=== PATIENT | male | born 1960 | race Caucasian/White ===

== ENCOUNTER → 2018-04-11 | Outpatient (CLI) | payer OTHER ==
[~2018-04-11] MED LIST: ALLO300T PO; ESCITALOPRAM OX10 MG PO
--- NOTE | 2018-04-11 12:16 | CARD ---
MR#: [id number] Date of Study: 04/11/2018 Ordering Physician: LETITIA CHIN, Referring Physician: LETITIA CHIN, Tech: Jannet Carrizales BLAYNE APPROVED REPORT EXAM: Two-dimensional and M-mode echocardiogram with Doppler and color Doppler. Other Information Quality : Good INDICATION Chest Pain 2D DIMENSIONS RVDd3.5 (2.9-3.5cm)Left Atrium(2D)3.6 (1.6-4.0cm) IVSd1.0 (0.7-1.1cm)Aortic Root(2D)3.1 (2.0-3.7cm) LVDd4.2 (3.9-5.9cm)LVOT Diameter2.1 (1.8-2.4cm) PWd0.9 (0.7-1.1cm)LVDs2.7 (2.5-4.0cm) FS (%) 35.9 %SV50.5 ml Aortic Valve AoV Peak Nate.136.9cm/sAoV VTI23.2cm AO Peak GR.7.5mmHgLVOT Peak Nate.92.9cm/s LVOT VTI 18.74cmAO Mean GR.4mmHg SUN (VMAX)2.64xl8IVA (VTI)2.69cm2 Mitral Valve MV E Quzwqkak27.3cm/sMV DECEL PMME913ub MV A Odxcebkg87.6cm/sMV VBE27gt E/A Ratio0.9MVA (PHT)2.83cm2 TDI E/Lateral E'9.6E/Medial E'9.3 Tricuspid Valve TR P. Xzdgqrkl376ut/sRAP KQYQWOZC3wzQg TR Peak Gr.44bgKeIAYE25epEw Pulmonary Vein S1 Aaloaimw96.2cm/sD2 Otslzxiu14.3cm/s LEFT VENTRICLE The left ventricle is normal size. There is borderline concentric left ventricular hypertrophy. The l eft ventricular systolic function is normal and the ejection fraction is within normal range. The Eje ction Fraction is 60-65%. There is normal LV segmental wall motion. Transmitral Doppler flow pattern is Grade I-abnormal relaxation pattern. RIGHT VENTRICLE The right ventricle is normal size. The right ventricular systolic function is normal. ATRIA The left atrium size is normal. The right atrium size is normal. The interatrial septum is intact wit h no evidence for an atrial septal defect or patent foramen ovale as noted on 2-D or Doppler imaging. AORTIC VALVE The aortic valve is calcified but opens well. Doppler and Color Flow revealed no significant aortic r egurgitation. There is no significant aortic valvular stenosis. MITRAL VALVE The mitral valve is calcified but opens well. There is no evidence of mitral valve prolapse. There is no mitral valve stenosis. Doppler and Color-flow revealed trace to mild mitral regurgitation. TRICUSPID VALVE The tricuspid valve is normal in structure and function. Doppler and Color Flow revealed trace tricus pid regurgitation. The PA pressure was estimated at 32 mmHg. There is no tricuspid valve stenosis. PULMONIC VALVE The pulmonic valve is not well visualized. Doppler and Color Flow revealed trace pulmonic valvular re gurgitation. There is no pulmonic valvular stenosis. GREAT VESSELS The aortic root is normal in size. The ascending aorta is normal in size. The IVC is normal in size a nd collapses >50% with inspiration. PERICARDIAL EFFUSION There is no evidence of significant pericardial effusion. Critical Notification Critical Value: No <Conclusion> The left ventricle is normal size. The left ventricular systolic function is normal and the ejection fraction is within normal range. The Ejection Fraction is 60-65%. There is borderline concentric left ventricular hypertrophy. There is no significant aortic valvular stenosis. Doppler and Color Flow revealed no significant aortic regurgitation. Doppler and Color-flow revealed trace to mild mitral regurgitation. Doppler and Color Flow revealed trace tricuspid regurgitation. The PA pressure was estimated at 32 mmHg. Signed by : Beau Robins MD Electronically Approved : 04/11/2018 12:14:46
--- NOTE | 2018-04-11 13:32 | RAD ---
MR#: [id number] Date of Study: 04/11/2018 Ordering Physician: LETITIA MA, Referring Physician: RINA DOZIER Tech: Kimmy Weaver Trini, RT (R) (N) APPROVED REPORT Test Type: Exercise Stress Nurse/Tech: Kirsten Silva R.N. Test Indications: chest pain Cardiac History: Family history Medications: See Electronic Medical Record Medical History: See Electronic Medical Record Resting ECG: s. Christophe Resting Heart Rate: 56 bpm Resting Blood Pressure: 144/64mmHg Pretest Chest Pain: No chest pain Nurse/Tech Notes S1S2, lungs sound clear Consent: The procedure was explained to the patient in lay terms. Informed consent was witnessed. Bebeto eout was entered into [employer] History and Stress Test performed by Kirsten Silva R.N. Stress Symptoms Dyspnea, too much artifact to get a good reading of EKG while pt was walking POST EXERCISE Reason for Termination: Reached target heart rate Target HR: 138 Max HR: 142 bpm Exercise duration: 9 min. 39 sec min:sec, 4 Stage Max Blood Pressure: 170/92mmHg Blood Pressure response to exercise: Normal blood pressure response during stress. Chest Pain: No. Arrhythmia: No. ST Change: Yes. INTERPRETATION Stress EKG Conclusion: Non-diagnostic EKG due to motion artifact. Imaging Protocol IMAGE PROTOCOL: Rest Tc-99m/stress Tc-99m 1 day Rest: Stress: Viability: Radiopharm.Tc99m XehpwcbolPn46u Sestamibi Dose12.6mCi 32.4mCi Duration 17min. 13min. Img Date 04/11/2018 04/11/2018 Inj-Img Tyta57ncw. 90min. Rest Admin Site:IV - Right AntecubitalAdministrator:ORACIO Weaver Stress Admin Site: IV - Right AntecubitalAdministrator: ORACIO Weaver STRESS DATA End Diast. Vol.62.0mlLVEDV index BSA32.0ml End Syst. Vol.11.0mlLVESV index BSA5.0ml Myocardial Qxki049.0gEject. Eahcpyae52.0% Stress Scores Regional WT0.00Summed WT5.00 Regional WM0.00Summed WM1.00 LV Perfusion There is a moderate sized, moderate to severe in intensity reversible perfusion defect involving the basal to distal inferior wall suggestive of stenosis in the RCA distribution. There is also a small sized, mild to moderate intensity mid anterior wall defect that is reversible s uggestive of LAD territory stenosis. No infarction is noted. Wall Motion Normal LV function. LV Perf. Quant 17 Seg. SSS16.00 17 Seg. SRS7.00 17 Seg. SDS9.00 Stress Defect Extent (% LAD)13.80Rest Defect Extent (% LAD)0.60Rev. Defect Extent (% LAD)8.80 Stress Defect Extent (% LCX) 76.30Rest Defect Extent (% LCX)61.30Rev. Defect Extent (% LCX)2.50 Stress Defect Extent (% RCA)18.90Rest Defect Extent (% RCA)0.00Rev. Defect Extent (% RCA)18.90 Stress Defect Extent (% YUNG)26.50Rest Defect Extent (% YUNG)14.30Rev. Defect Extent (% YUNG)7.60 Other Information Quality:Fair Risk Assessment: Low-Moderate Risk Conclusion 1. Non-diagnostic EKG due to motion artifact. 2. Perfusion defect in the anterior and inferior leahy as noted above. Cannot rule out motion artifac t 3. Normal LV systolic function. EF 65% 4. Low to moderate risk study. Signed by : Letitia Ma, Electronically Approved : 04/11/2018 13:32:38
== END | disposition home or self-care (01) ==
LOC: NM 09:01
PROVIDERS: ATTEND Internal Medicine Cardiovascular Disease
DX: R07.9 Chest pain, unspecified (principal); Z79.01 Long term (current) use of anticoagulants
CPT/HCPCS: 78452; 93017; 93306; 96374; 96376; A9500

== ENCOUNTER 2018-04-25 09:52 | Outpatient (CLI) | payer OTHER ==
[~2018-04-25] VITALS: Ht 175.3 cm; Wt 81.6 kg
[2018-04-25] VITALS (9 sets, daily range): BP systolic 108–132; BP diastolic 70–99
[2018-04-25 10:16] LABS: HEMOGLOBIN 17.5 g/dL (13.0-17.5); RED BLOOD COUNT 5.64 x10^6/uL (4.30-5.70); RED CELL DISTRIBUTION WIDTH 13.7 % (11.5-14.5); WHITE BLOOD COUNT 8.6 x10^3/uL (4.0-11.0)
[2018-04-25 10:22] LABS: CALCIUM 9.6 mg/dL (8.5-10.1); CREATININE 0.9 mg/dL (0.7-1.3); POTASSIUM 3.9 mmol/L (3.5-5.1)
[2018-04-25 10:27] LABS: PROTHROMBIN TIME PATIENT 12.7 SEC (11.7-14.0)
[2018-04-25] MEDS ORDERED: ESCITALOPRAM OX10 MG PO (10:38)
[2018-04-25] MEDS ORDERED: ALLO300T PO (10:38)
[2018-04-25] MEDS ORDERED: IOHEXOL 300 MG/ML 100ML VIAL. ONE (11:30)
[2018-04-25] MEDS ORDERED: LIDOCAINE 1% PF 2 ML VIAL. ONE (11:30)
[2018-04-25] MEDS ORDERED: HEPARIN for IV BOLUS 10,000 UNIT/10 ML VIAL. ONE (11:39)
[2018-04-25] MEDS ORDERED: fentaNYL PF VIAL 100 MCG/2 ML VIAL ONE (11:39)
[2018-04-25] MEDS ORDERED: NITROGLYCERIN 200 MCG/2 ML SYRINGE FOR CATH/VASC LAB. ONE ×2 (11:39→12:11)
[2018-04-25] MEDS ORDERED: VERAPAMIL 5 MG/2 ML VIAL. ONE (11:39)
[2018-04-25] MEDS ORDERED: MIDAZOLAM HCL/PF 2 MG/2 ML VIAL. ONE (11:39)
[2018-04-25] MEDS ORDERED: HEPARIN for IV BOLUS 10,000 UNIT/10 ML VIAL. IART ONE (12:30)
[2018-04-25] MEDS ORDERED: VERAPAMIL 5 MG/2 ML VIAL. IART ONE (12:30)
[2018-04-25] MEDS ORDERED: LIDOCAINE 1% PF 30 ML VIAL. INJ ONE (12:30)
[2018-04-25] MEDS ORDERED: NITROGLYCERIN 200 MCG/2 ML SYRINGE FOR CATH/VASC LAB. IART ONE (12:30)
[2018-04-25] MEDS ORDERED: IV NORMAL SALINE 1000ML BAG 1,000 ML IV ONE (12:30)
[2018-04-25] MEDS ORDERED: MIDAZOLAM HCL/PF 2 MG/2 ML VIAL. IV ONE (12:45)
[2018-04-25] MEDS ORDERED: fentaNYL PF VIAL 100 MCG/2 ML VIAL IV ONE (12:45)
[2018-04-25] MEDS ORDERED: LIDOCAINE 1% PF 2 ML VIAL. INJ ONE (12:45)
[2018-04-25 13:25] LABS: CHOLESTEROL/HDL RATIO 3.7
--- NOTE | 2018-04-25 14:15 | CARD ---
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 INDICATION The indication(s) include : positive stress test. PROCEDURE NARRATIVE INFORMED CONSENT: After explaining the risks and benefits of the procedure and alternatives, informed consent was obtained. The patient was brought electively to the cardiac catheterization lab. A timeout was performed confi rming the patient's name, date of , procedure, and site of procedure. All necessary personnel w ere wearing the appropriate protective equipment and radiation monitor devices. (See nursing notes for medications administered). ACCESS: The right wrist was sterilely prepped and draped in the usual fashion. The right wrist was infiltrat ed with 1 mL of 2% lidocaine for subcutaneous anesthesia. A 6 Japanese Terumo glide sheath was inserte d into the right radial artery without difficulty. CORONARY ANGIOGRAPHY: Right and left coronary angiography was performed using a 6Fr TIG 4.0 catheter. Left ventricular en d diastolic pressure was obtained with a pigtail catheter and pullback was performed after left ventr iculography. All catheter exchanges and advancements were performed over a guidewire. FINDINGS: HEMODYNAMICS: LVEDP 8 mm Hg No gradient on LV to aortic pullback. AO: 128/78 LEFT VENTRICULOGRAM: EF 70% Anterobasal: Normal. Anterolateral: Normal Apical: Normal Diaphragmatic: Normal Posterobasal: Normal CORONARY ANGIOGRAPHY: LM is a large caliber vessel with normal angiographic appearance. LAD is a large caliber vessel with proximal 30% stenosis and a mid 50% stenosis. The LAD wraps around the apex. D1/D2 are small caliber vessels with mild luminal irregularities. LCx is a moderate caliber non-dominant vessel with normal angiographic appearance. OM1 is a moderate caliber vessel with normal angiographic appearance. RCA is a large caliber vessel with a proximal 40% stenosis, mid 30% and distal 40% stenosis. RPL and RPDA are small to moderate caliber vessels with mild luminal irregularities. INTERVENTIONAL TECHNIQUE: Due to moderate LAD disease and prior inferior and anterior ischemia, an iFR was performed. Heparin w as used for anticoagulation. An iFR wire was advanced through a 6F EBU 3.5 guide catheter after appro priate normalization and NTG administration. The iFR was measured at 0.92. Final angiography revealed no significant abnormalities. CLOSURE: At case completion the right radial sheath was removed and a Terumo radial band was applied with 13 m l of air. COMPLICATIONS: The patient tolerated the procedure well and there were no immediate complications. Conclusion 1. Non obstructive coronary disease Recommendations 1. Aggressive medical therapy. 2. Needs statin therapy, if not able to tolerate due to LFT issues, then consider PCSK-9 inhibitors. 3. Start exercise regimen. Signed by : Letitia Chin, Electronically Approved : 04/25/2018 14:14:10
== END 2018-04-25 15:16 | disposition home or self-care (01) ==
LOC: CCL 09:52
PROVIDERS: ATTEND Internal Medicine Cardiovascular Disease
DX: I25.10 Atherosclerotic heart disease of native coronary artery without angina pectoris (principal); E78.00 Pure hypercholesterolemia, unspecified; Z79.899 Other long term (current) drug therapy; Z98.890 Other specified postprocedural states; Z79.01 Long term (current) use of anticoagulants
CPT/HCPCS: 36415; 80048; 80061; 85027; 85610; 93458; 93571; 99152; 99153; C1769; C1887; C1892; J1644; J2250; J3010; J3490; J7030

== ENCOUNTER → 2018-05-09 | Day surgery (SDC) | payer OTHER ==
[~2018-05-09] MED LIST changes: +ASPI-630 PO; +IV RINGERS,LACTATED 1000ML 1,000 ML IV SCH; +LIDOCAINE 1% PF 2 ML VIAL. ID PRN; +MIDAZOLAM HCL/PF 2 MG/2 ML VIAL. IV PRN; +PROPOFOL 40 ML IV ONE; +fentaNYL PF VIAL 100 MCG/2 ML VIAL IV PRN
[2018-05-09 09:49] VITALS: BP 110/64
--- NOTE | 2018-05-09 10:04 | PDOC1 ---
HISTORY & PHYSICAL H&P see attached H&P from my office that is on the chart. RAMIRO BRAGA MD May 09, 2018 10:04
== END | disposition home or self-care (01) ==
LOC: ENDOS 08:23
PROVIDERS: ATTEND Internal Medicine Gastroenterology
DX: Z12.11 Encounter for screening for malignant neoplasm of colon (principal); K57.30 Diverticulosis of large intestine without perforation or abscess without bleeding; I10 Essential (primary) hypertension; F41.9 Anxiety disorder, unspecified; F32.9 Major depressive disorder, single episode, unspecified; G43.009 Migraine without aura, not intractable, without status migrainosus; E78.5 Hyperlipidemia, unspecified; N40.0 Benign prostatic hyperplasia without lower urinary tract symptoms; Z86.010 Personal history of colon polyps; M10.9 Gout, unspecified; Z87.01 Personal history of pneumonia (recurrent); Z98.890 Other specified postprocedural states; Z82.49 Family history of ischemic heart disease and other diseases of the circulatory system; Z79.82 Long term (current) use of aspirin; Z79.899 Other long term (current) drug therapy; Z88.8 Allergy status to other drugs, medicaments and biological substances
CPT/HCPCS: 45378; J2704